=== PATIENT | male | born 1955 | race African-American/Black ===

== ENCOUNTER 2017-01-09 12:57 | Emergency (ER) | payer OTHER ==
[2017-01-09 13:21] VITALS: BP 127/100; PULSE 59; TEMP 98.5; BMI 30.1
[2017-01-09] MEDS ORDERED: KETOROLAC TROMETHAMINE 60 MG/2 ML VIAL IM ONE (14:23)
[2017-01-09] MEDS ORDERED: KETOROLAC TROMETHAMINE 60 MG/2 ML VIAL ONE (14:26)
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
== END 2017-01-09 14:55 | disposition home or self-care (01) ==
LOC: JERFT 12:57
PROC: 3E0233Z Introduction of Anti-inflammatory into Muscle, Percutaneous Approach (ICD-10-PCS; principal; 2017-01-09)
DX: M54.5 Low back pain (principal); G89.29 Other chronic pain
CPT/HCPCS: 96372; 99281-25

== ENCOUNTER 2018-10-05 14:06 | Emergency (ER) | payer OTHER ==
[2018-10-05 14:14] VITALS: BP 113/73; PULSE 87; TEMP 99; BMI 31.5
--- NOTE | 2018-10-05 14:14 | PDOC ---
Rapid Medical Evaluation Chief Complaint: Pain Medical Evaluation: Allergies Allergy/AdvReac Type Severity Reaction Status Date / Time morphine Allergy Verified 01/09/17 13:18 10/05/18 14:11 I have performed a brief in-person evaluation of this patient. The patient presents with a chief complaint of: left foot pain x 3 days , may have stepped on something but uncertain No fevers, no drainage or pus noted Pertinent physical exam findings: walks with mild limp I have ordered the following: nothing The patient will proceed to the ED for further evaluation
--- NOTE | 2018-10-05 14:49 | PDOC ---
History of Present Illness - General Chief Complaint: Pain Stated Complaint: RT FOOT MASS Time Seen by Provider: 10/05/18 14:21 History Source: Patient Exam Limitations: No Limitations Past History - Travel Traveled outside of the country in the last 30 days: No Close contact w/someone who was outside of country & ill: No - Past Medical History Allergies/Adverse Reactions: Allergies Allergy/AdvReac Type Severity Reaction Status Date / Time morphine Allergy Verified 10/05/18 14:25 Home Medications: Ambulatory Orders Clobetasol Propionate [Temovate] 1 applic TP BID #60 gm 10/05/18 Sulfamethoxazole/Trimethoprim [Bactrim Ds -] 1 tab PO BID #14 tablet 10/05/18 - Immunization History Immunization Up to Date: No - Suicide/Smoking/Psychosocial Hx Smoking Status: No Smoking History: Smoker current status UNK Have you smoked in the past 12 months: Yes Number of Cigarettes Smoked Daily: 0 Information on smoking cessation initiated: No Hx Alcohol Use: No Drug/Substance Use Hx: Yes (weed) Substance Use Type: None Review of Systems - Review of Systems Able to Perform ROS?: Yes Comments:: 10/05/18 14:49 CONSTITUTIONAL: Absent: fever, chills, diaphoresis, generalized weakness, malaise, loss of appetite MUSCULOSKELETAL: Present: L foot pain Absent: myalgia, arthralgia, joint swelling SKIN: Present: rash, itching Absent: pallor HEMATOLOGIC/IMMUNOLOGIC: Absent: easy bleeding, easy bruising, lymphadenopathy, frequent infections ENDOCRINE: Absent: unexplained weight gain, unexplained weight loss, heat intolerance, cold intolerance NEUROLOGIC: Absent: headache, focal weakness or paresthesias, dizziness, unsteady gait, seizure, mental status changes, bladder or bowel incontinence PSYCHIATRIC: Absent: anxiety, depression, suicidal or homicidal ideation, hallucinations. 10/05/18 15:34 Is the patient limited French proficient: No *Physical Exam - Vital Signs Last Vital Signs Temp Pulse Resp BP Pulse Ox 99 F 87 20 113/73 97 10/05/18 14:08 10/05/18 14:08 10/05/18 14:08 10/05/18 14:08 10/05/18 14:08 - Physical Exam Comments: 10/05/18 14:49 GENERAL: Well developed, well nourished. Awake and alert. No acute distress. MUSCULOSKELETAL TTP of the arch of the L foot. No foreign body present on exam. Nodule felt at the base of the foot. TTP of the arch of the L foot. Normal range of motion at all joints. No bony deformities or tenderness. No CVA tenderness. EXTREMITIES: No cyanosis. No clubbing. No edema. No calf tenderness. SKIN: Pruritic excoriated papules to the upper arms, chest and upper back. Warm and dry. Normal capillary refill. No jaundice. NEUROLOGICAL: Alert, awake, appropriate. Cranial nerves 2-12 intact. No deficits to light touch and temperature in face, upper extremities and lower extremities. No motor deficits in the in face, upper extremities and lower extremities. Normoreflexic in the upper and lower extremities. Normal speech. Toes are down- going bilaterally. Gait is normal without ataxia. PSYCHIATRIC: Cooperative. Good eye contact. Appropriate mood and affect. Moderate Sedation - Procedure Monitoring Vital Signs: Procedure Monitoring Vital Signs Temperature 99 F 10/05/18 14:08 Pulse Rate 87 10/05/18 14:08 Respiratory Rate 20 10/05/18 14:08 Blood Pressure 113/73 10/05/18 14:08 O2 Sat by Pulse Oximetry (%) 97 10/05/18 14:08 *DC/Admit/Observation/Transfer Diagnosis at time of Disposition: Rash, Left foot pain - Discharge Dispostion Disposition: HOME Condition at time of disposition: Stable Decision to Admit order: No - Referrals Referrals: Aziza Leone DPM [Staff Physician] - Ita Oliveira MD [Staff Physician] - Jeevan Kumar MD [Staff Physician] - - Patient Instructions Printed Discharge Instructions: DI for Rash, DI for Foot Pain Additional Instructions: Your x-ray is negative for foreign bodies. Use the clobetasol to the rash on your chest and arms Take the Bactrim twice a day for one week for the skin infection; take all the medication even if you feel better Please follow up with both dermatology and podietry. Referrals have been provided Return to the ED for any new or worsening symptoms - Post Discharge Activity
== END 2018-10-05 16:06 | disposition home or self-care (01) ==
LOC: JERFT 14:06
DX: R21 Rash and other nonspecific skin eruption (principal); M79.672 Pain in left foot
CPT/HCPCS: 73630-TC-LT; 99281-25